=== PATIENT | male | born 1970 | race Caucasian/White ===

== ENCOUNTER 2017-08-16 08:19 | Day surgery (SDC) | payer OTHER, BC ==
[~2017-08-16 08:19] MED LIST: Bupivacaine 0.5% 30 ML SDV ONE; Lactated Ringers 1,000 ML IV SCH; Sodium Chloride 0.9% 10 ML Syringe FLUSH PRN; Sodium Chloride 0.9% 2.5 ML Syringe FLUSH PRN; ceFAZolin 2 GM in Premix Bag 1 BAG IV ONE
[2017-08-16] MEDS ORDERED: Scopolamine 1.5 MG Transdermal Patch TRDERM PRN (08:41)
--- NOTE | 2017-08-16 08:43 | PCM.PREANE ---
Preanesthetic Assessment - Anesthesia/Transfusion/Family Hx Anesthesia History: Prior Anesthesia Without Reaction Family History of Anesthesia Reaction: No Transfusion History: No Prior Transfusion(s) - Review of Systems General: No Symptoms Pulmonary: No Symptoms Cardiovascular: No Symptoms Gastrointestinal: No Symptoms Neurological: No Symptoms Other: Reports: None - Physical Assessment NPO Status Date: 08/15/17 O2 Sat by Pulse Oximetry: 95 Respiratory Rate: 16 Vital Signs: Last Vital Signs Temp 37.0 C 08/16/17 08:36 Pulse 68 08/16/17 08:36 Resp 16 08/16/17 08:36 BP 151/92 H 08/16/17 08:36 Pulse Ox 95 08/16/17 08:36 Height: 1.83 m Weight: 119.748 kg ASA Class: 2 Mental Status: Alert & Oriented x3 Airway Class: Mallampati = 1 Dentition: Reports: Normal Dentition ROM/Head Extension: Full Lungs: Clear to Auscultation, Normal Respiratory Effort Cardiovascular: Regular Rate, Regular Rhythm - Allergies Allergies/Adverse Reactions: Allergies Allergy/AdvReac Type Severity Reaction Status Date / Time avocado Allergy Airway Verified 08/12/17 09:25 Tightness - Anesthesia Plan Pre-Op Medication Ordered: Other (scop) - Acknowledgements Anesthesia Type Planned: General Anesthesia Pt an Appropriate Candidate for the Planned Anesthesia: Yes Alternatives and Risks of Anesthesia Discussed w Pt/Guardian: Yes Pt/Guardian Understands and Agrees with Anesthesia Plan: Yes PreAnesthesia Questionnaire - Past Health History Medical/Surgical History: Denies Medical/Surgical History Musculoskeletal History: Reports: Fracture Other Musculoskeletal History: hx of fx left shoulder, ribs and foot Endocrine/Metabolic History: Reports: Obesity/BMI 30+ - Past Surgical History Head Surgeries/Procedures: Reports: None Neurological Surgical History: Reports: Discectomy, Lumbar Spine Musculoskeletal Surgical History: Reports: ORIF Other Musculoskeletal Surgeries/Procedures:: left shoulder (has hardware) - SUBSTANCE USE Smoking Status *Q: Never Smoker Tobacco Use Within Last Twelve Months: No Days Per Week of Alcohol Use: 0 Recreational Drug Use History: No - HOME MEDS Home Medications: Home Meds . [No Known Home Meds] 08/12/17 [History] - CURRENT (IN HOUSE) MEDS Current Meds: Current Medications Lactated Ringer's (Ringers, Lactated) 1,000 mls @ 125 mls/hr IV ASDIRECTED LULÚ Last Admin: 08/16/17 08:37 Dose: 125 mls/hr Sodium Chloride (Saline Flush) 10 ml FLUSH ASDIRECTED PRN PRN Reason: Keep Vein Open Sodium Chloride (Saline Flush) 2.5 ml FLUSH ASDIRECTED PRN PRN Reason: Keep Vein Open Discontinued Medications Bupivacaine HCl (Marcaine 0.5%) Confirm Administered Dose 30 ml .ROUTE .STK-MED ONE Stop: 08/16/17 07:27 Cefazolin Sodium/Dextrose 2 gm (/ Premix) 50 mls @ 100 mls/hr IV ONETIME ONE Stop: 08/15/17 17:06
[2017-08-16] MEDS ORDERED: Lidocaine 2% 5 ML SDV ONE (08:59)
[2017-08-16] MEDS ORDERED: fentaNYL 100 MCG/2 ML SDV ONE (09:00)
[2017-08-16] MEDS ORDERED: Midazolam 1 MG/ML 2 ML SDV ONE (09:00)
[2017-08-16] MEDS ORDERED: Propofol 200 MG/20 ML SDV ONE ×2 (09:00→10:35)
[2017-08-16] MEDS ORDERED: Rocuronium 10 MG/ML 10 ML Syringe ONE (09:06)
[2017-08-16] MEDS ORDERED: Glycopyrrolate 0.2 MG/ML SDV ONE (09:06)
[2017-08-16] MEDS ORDERED: Neostigmine Methylsulfate 1 MG/ML 5 ML Syringe ONE (09:06)
[2017-08-16] MEDS ORDERED: Ondansetron 4 MG/2 ML SDV ONE (09:06)
[2017-08-16] MEDS ORDERED: Ketorolac 30 MG/ML SDV ONE (09:06)
[2017-08-16] MEDS ORDERED: ceFAZolin 1 GM Vial ONE (09:11)
[2017-08-16] MEDS ORDERED: Sodium Chloride 0.9% 20 ML ONE (09:11)
[2017-08-16] MEDS ORDERED: Albuterol 6.7 GM Inhaler INH ONE (09:40)
[2017-08-16] MEDS ORDERED: Acetaminophen/oxyCODONE 325-5 MG Tab PO PRN (11:57)
--- NOTE | 2017-08-16 11:57 | PCM.OPNOTE ---
- General Post-Op/Procedure Note Date of Surgery/Procedure: 08/16/17 Operative Procedure(s): Laparoscopic cholecystectomy Findings: Enlarged gallbladder with minimal inflammation. Pre Op Diagnosis: symptomatic cholelithiasis Post-Op Diagnosis: same Anesthesia Technique: General ET Tube Primary Surgeon: Clementine Rodriguez EBL in mLs: 10 Condition: Good
[2017-08-16] MEDS ORDERED: HYDROmorphone 2 MG/ML Syringe IVPUSH ONE (12:03)
[2017-08-16] MEDS: fentaNYL 100 MCG/2 ML SDV IVPUSH PRN ×2 (12:20→12:25)
--- NOTE | 2017-08-16 12:48 | PCM.POSTAN ---
POST ANESTHESIA ASSESSMENT - MENTAL STATUS Mental Status: Alert, Oriented - RESPIRATORY Respiratory Status: Respiratory Rate WNL, Airway Patent, O2 Saturation Stable - CARDIOVASCULAR CV Status: Pulse Rate WNL, Blood Pressure Stable - GASTROINTESTINAL GI Status: No Symptoms - POST OP HYDRATION Hydration Status: Adequate & Stable
[2017-08-16 13:49] VITALS: BP 140/92
--- NOTE | 2017-08-16 13:58 | PCM48HPAN ---
Post Anesthesia Note - EVALUATION WITHIN 48HRS OF ANESTHETIC Vital Signs in Normal Range: Yes Patient Participated in Evaluation: Yes Respiratory Function Stable: Yes Airway Patent: Yes Cardiovascular Function Stable: Yes Hydration Status Stable: Yes Pain Control Satisfactory: Yes Nausea and Vomiting Control Satisfactory: Yes Mental Status Recovered: Yes Resp Rate: 16 - COMMENTS/OBSERVATIONS Free Text/Narrative:: Patient states he is feeling better and less sleepy and ready to go home.
--- NOTE | 2017-08-16 14:36 | OR ---
SURGEON: ANDRE GROVE MD DATE OF PROCEDURE: 08/16/2017 PREOPERATIVE DIAGNOSIS: Symptomatic cholelithiasis. POSTOPERATIVE DIAGNOSIS: Symptomatic cholelithiasis. PROCEDURE PERFORMED: Laparoscopic cholecystectomy. ANESTHESIA: General endotracheal anesthesia. ESTIMATED BLOOD LOSS: 10 mL. FLUIDS: See anesthesia record. URINE OUTPUT: See anesthesia record. FINDINGS: Enlarged appearing gallbladder with mild inflammation. COMPLICATIONS: None. INDICATIONS: The patient is a 47-year-old male with symptomatic cholelithiasis. Preoperative labs showed normal LFTs and lipase. His right upper quadrant ultrasound showed a mildly dilated common bile duct. MRCP was performed that showed no evidence of choledocholithiasis. The decision was made to perform a laparoscopic possible open cholecystectomy. I explained both the laparoscopic and open procedure. Should I be unable to perform it laparoscopically, I will convert to open. The patient and I discussed the expected perioperative course as well as risks of the surgery including bleeding, infection, or damage to surrounding structures including damage to surrounding structures. The patient verbalized understanding and wishes to proceed. PROCEDURE IN DETAIL: The patient was brought to the OR and placed on the OR table in supine position. A time-out was completed verifying the patient's name, age, date of , allergies, and procedure to be performed. General endotracheal anesthesia was induced. The left arm was tucked to the patient's side and a Shah catheter placed. The abdomen was prepped and draped in usual standard fashion. I anesthetized the infraumbilical fold with 0.5% Marcaine plain. An incision was made along the infraumbilical fold using an 11 blade. Cautery was used to dissect down to the level of the subcutaneous fat. Retractors were then used to dissect down to the level of the fascia. The fascia was elevated with Mamie's and incised sharply with the Shore scissors. The peritoneum was identified, elevated with tonsils, and incised with the Metzenbaum scissors. A 12 stay sutures were placed on either side of the fascia. A 12 mm Ebony trocar was placed in the abdomen, and the abdomen insufflated to a pressure of 13 mmHg. The patient was then placed in reverse Trendelenburg position and airplaned slightly to the left. A 5 mm 30-degree scope was inserted in the abdomen. I inspected the area underneath my initial incision and there was no damage to surrounding structures. The 5 mm trocars were placed in the following locations under direct visualization, one in the epigastric area, one along the right flank, and two fingerbreadths below the right subcostal margin in the midclavicular line. The top of the gallbladder was grasped with an atraumatic grasper and lifted above the dome of the liver. This exposed the infundibulum. The infundibulum was grasped with an atraumatic grasper and retracted to allow dissection of the preperitoneal fat that was adhered up along the cystic duct and artery. A combination of hook cautery and blunt dissection were used to obtain my critical view. Once I could identify my cystic duct artery and I cleared away one-third of the proximal cystic plate, I doubly clipped and ligated the cystic duct and artery. The gallbladder was then removed from the gallbladder fossa using electrocautery. Upon manipulation, the clip that was on the gallbladder itself came loose and bile was spilled in the abdomen. No stones were spilled in the abdomen. The gallbladder was then placed in an EndoCatch bag and removed through the periumbilical port site. A liter and half of normal saline was used to irrigate the abdomen, given the spillage of bile. Once my operative site was clear, I inspected it, it appeared hemostatic and the clips to be in good position with no evidence of bleeding or bile leakage. The ports were then removed under direct visualization, and the abdomen allowed to desufflate. The infraumbilical incision was irrigated with normal saline. The fascia at the infraumbilical port site was closed using interrupted 0 Vicryl sutures. The subcutaneous fat was closed with running 3-0 Vicryl suture. The skin was closed with running 4-0 Monocryl stitch. The 5 mm port sites were closed with interrupted 4-0 Monocryl sutures. Steri-Strips and sterile dressings were applied. The patient tolerated the procedure well and was taken to PACU in stable condition. SHEKHAR STEVENS /[id number] REHAN
== END 2017-08-16 13:55 | disposition home or self-care (01) ==
LOC: MW.SDS 08:19
PROVIDERS: ATTEND Surgery
DX: K80.10 Calculus of gallbladder with chronic cholecystitis without obstruction (principal); K40.20 Bilateral inguinal hernia, without obstruction or gangrene, not specified as recurrent; E66.9 Obesity, unspecified; Z79.899 Other long term (current) drug therapy; Z90.49 Acquired absence of other specified parts of digestive tract; Z91.018 Allergy to other foods; Z68.30 Body mass index [BMI] 30.0-30.9, adult
CPT/HCPCS: 47562; A9270; J0690; J1885; J2250; J2405; J3010; J7120; 00790; 88304; J2704

== ENCOUNTER 2019-05-22 18:12 | Emergency (ER) | payer OTHER, BC ==
[2019-05-22] MEDS ORDERED: Sodium Chloride 0.9% 2.5 ML Syringe FLUSH PRN (18:29)
[2019-05-22] MEDS ORDERED: Sodium Chloride 0.9% 10 ML Syringe FLUSH PRN (18:29)
--- NOTE | 2019-05-22 18:33 | EDM.PDOC ---
ED HPI GENERAL MEDICAL PROBLEM - General Chief Complaint: Abdominal Pain Stated Complaint: RIGHT SIDE PAIN Time Seen by Provider: 05/22/19 18:14 Source of Information: Reports: Patient History Limitations: Reports: No Limitations - History of Present Illness INITIAL COMMENTS - FREE TEXT/NARRATIVE: HISTORY AND PHYSICAL: History of present illness: Patient is a 49-year-old male who presents to the emergency room today with complaints of right upper quadrant pain with nausea. He states symptoms started approximately 1 hour prior to arrival. He currently is on amoxicillin for an upper respiratory infection, otherwise had felt well this afternoon. Patient denies any fever, chills, headache, change in vision, syncope or near syncope. Denies any chest pain, back pain, shortness of breath or cough. Denies any vomiting, diarrhea, constipation or dysuria. Has not noted any blood in urine or stool. Patient has been eating and drinking appropriately. Review of systems: As per history of present illness and below otherwise all systems reviewed and negative. Past medical history: As per history of present illness and as reviewed below otherwise noncontributory. Surgical history: As per history of present illness and as reviewed below otherwise noncontributory. Social history: See social history for further information Family history: As per history of present illness and as reviewed below otherwise noncontributory. Physical exam: General: Well-developed and well-nourished 49-year-old male. Alert and oriented. Nontoxic appearing and in no acute distress. HEENT: Atraumatic, normocephalic, pupils equal and reactive bilaterally, negative for conjunctival pallor or scleral icterus, mucous membranes moist, TMs normal bilaterally, throat clear, neck supple, nontender, trachea midline. No drooling or trismus noted. No meningeal signs. No hot potato voice noted. Lungs: Clear to auscultation, breath sounds equal bilaterally, chest nontender. Heart: S1S2, regular rate and rhythm without overt murmur Abdomen: Soft, nondistended, LUQ/RUQ tenderness. Negative for masses or hepatosplenomegaly. Negative for costovertebral tenderness. Pelvis: Stable nontender. Skin: Intact, warm, dry. No lesions or rashes noted. Extremities: Atraumatic, moves all extremities per self without difficulty or deficits, negative for cords or calf pain. Neurovascular unremarkable. Neuro: Awake, alert, oriented. Cranial nerves II through XII unremarkable. Cerebellum unremarkable. Motor and sensory unremarkable throughout. Exam nonfocal. Notes: Patient believes he does have a history of pancreatitis stating he had similar symptoms while he was in [place] although did not ever get any lab results or was told what he was diagnosed with. He did recently drink pretty heavily a few nights ago at a holiday constitution party. States otherwise he doesn't typically drink too often, rather socially. Patient states his abdominal pain has improved since being here. We discussed lab results. Admission was offered, he declines. He has been able to keep fluids down. We discussed the importance of close follow up with PCP and signs and symptoms that would prompt him to return to the emergency room. Supportive care measures were reviewed and discussed. Patient voices understanding and is agreeable to plan of care. Denies any further questions or concerns at this time Diagnostics: CBC, CMP, UA, Lipase Therapeutics: IV fluids, Zofran, Morphine Impression: Acute Pancreatitis Plan: 1. [place] diet, advance as tolerated. Make sure you are pushing fluids to prevent dehydration 2. Take the medications as prescribed. 3. Follow-up with your primary care provider as we discussed. 4. If symptoms should not improve or new symptoms develop/worsened please return to the emergency room for admission as we discussed. Definitive disposition and diagnosis as appropriate pending reevaluation and review of above. R upper quadrant Pain Score (Numeric/FACES): 6 - Related Data Allergies Allergy/AdvReac Type Severity Reaction Status Date / Time avocado Allergy Airway Verified 08/12/17 09:25 Tightness Home Meds: Home Meds Fish Oil/[place]-3 Fatty Acids [Fish Oil 1,000 MG] 1 tab PO DAILY 05/16/18 [ History] Amoxicillin 500 mg PO BID 05/22/19 [History] Past Medical History - Past Health History Medical/Surgical History: Denies Medical/Surgical History Gastrointestinal History: Reports: None Musculoskeletal History: Reports: Fracture Other Musculoskeletal History: hx of fx left shoulder, ribs and foot Neurological History: Reports: None Endocrine/Metabolic History: Reports: Obesity/BMI 30+ - Past Surgical History Head Surgeries/Procedures: Reports: None GI Surgical History: Reports: Cholecystectomy Neurological Surgical History: Reports: Lumbar Spine Other Neurological Surgeries/Procedures: hx microdiscectomy Musculoskeletal Surgical History: Reports: Shoulder Surgery ED ROS GENERAL - Review of Systems Review Of Systems: Comprehensive ROS is negative, except as noted in HPI. ED EXAM, GI/ABD - Physical Exam Exam: See Below (See dictation) Course - Vital Signs Last Recorded V/S: Last Vital Signs Temp 96.5 F 05/22/19 18:38 Pulse 76 05/22/19 20:25 Resp 16 05/22/19 20:25 BP 124/73 05/22/19 20:25 Pulse Ox 95 05/22/19 20:25 - Orders/Labs/Meds Orders: Active Orders 24 hr Category Date Time Status Abdomen Pelvis w Cont [CT] Stat Exams 05/22/19 19:37 Taken Sodium Chloride 0.9% [Normal Saline] 1,000 ml Med 05/22/19 20:23 Active IV STAT Sodium Chloride 0.9% [Saline Flush] Med 05/22/19 18:29 Active 10 ml FLUSH ASDIRECTED PRN Sodium Chloride 0.9% [Saline Flush] Med 05/22/19 18:29 Active 2.5 ml FLUSH ASDIRECTED PRN Saline Lock Insert [OM.PC] Stat Oth 05/22/19 18:29 Ordered Medication Orders Sodium Chloride (Normal Saline) 1,000 mls @ 150 mls/hr IV STAT ONE Stop: 05/23/19 03:02 Last Admin: 05/22/19 20:26 Dose: 150 mls/hr Sodium Chloride (Saline Flush) 10 ml FLUSH ASDIRECTED PRN PRN Reason: Keep Vein Open Sodium Chloride (Saline Flush) 2.5 ml FLUSH ASDIRECTED PRN PRN Reason: Keep Vein Open Labs: Laboratory Tests 05/22/19 05/22/19 05/22/19 Range/Units 19:00 19:00 19:30 WBC 10.24 (4.0-11.0) K/uL RBC 5.46 (4.50-5.90) M/uL Hgb 15.9 (13.0-17.0) g/dL Hct 45.9 (38.0-50.0) % MCV 84.1 (80.0-98.0) fL MCH 29.1 (27.0-32.0) pg MCHC 34.6 (31.0-37.0) g/dL RDW Std Deviation 37.9 (28.0-62.0) fl RDW Coeff of Darryl 13 (11.0-15.0) % Plt Count 167 (150-400) K/uL MPV 10.60 (7.40-12.00) fL Neut % (Auto) 74.8 (48.0-80.0) % Lymph % (Auto) 16.6 (16.0-40.0) % [place] % (Auto) 6.1 (0.0-15.0) % Eos % (Auto) 2.4 (0.0-7.0) % Baso % (Auto) 0.1 (0.0-1.5) % Neut # (Auto) 7.7 H (1.4-5.7) K/uL Lymph # (Auto) 1.7 (0.6-2.4) K/uL [place] # (Auto) 0.6 (0.0-0.8) K/uL Eos # (Auto) 0.3 (0.0-0.7) K/uL Baso # (Auto) 0.0 (0.0-0.1) K/uL Nucleated RBC % 0.0 /100WBC Nucleated RBCs # 0 K/uL Sodium 141 (136-148) mmol/L Potassium 3.6 (3.5-5.1) mmol/L Chloride 105 (98-107) mmol/L Carbon Dioxide 27.8 (21.0-32.0) mmol/L BUN 26 H (7.0-18.0) mg/dL Creatinine 1.0 (0.8-1.3) mg/dL Est Cr Clr Drug Dosing 101.61 mL/min Estimated GFR (MDRD) > 60.0 ml/min Glucose 108 H (74-106) mg/dL Calcium 9.2 (8.5-10.1) mg/dL Total Bilirubin 0.4 (0.2-1.0) mg/dL AST 30 (15-37) IU/L ALT 47 (14-63) IU/L Alkaline Phosphatase 94 (46-116) U/L Total Protein 7.0 (6.4-8.2) g/dL Albumin 3.9 (3.4-5.0) g/dL Globulin 3.1 (2.6-4.0) g/dL Albumin/Globulin Ratio 1.3 (0.9-1.6) Lipase 1991 H (73-393) U/L Urine Color YELLOW Urine Appearance CLEAR Urine pH 6.0 (5.0-8.0) Ur Specific [place] >= 1.030 (1.001-1.035) Urine Protein NEGATIVE (NEGATIVE) mg/dL Urine Glucose (UA) NEGATIVE (NEGATIVE) mg/dL Urine Ketones TRACE H (NEGATIVE) mg/dL Urine Occult Blood NEGATIVE (NEGATIVE) Urine Nitrite NEGATIVE (NEGATIVE) Urine Bilirubin NEGATIVE (NEGATIVE) Urine Urobilinogen 0.2 (<2.0) EU/dL Ur Leukocyte Esterase NEGATIVE (NEGATIVE) Meds: Medications Generic Name Dose Route Start Last Admin Trade Name Freq PRN Reason Stop Dose Admin Sodium Chloride 1,000 mls @ 150 mls/hr 05/22/19 20:23 05/22/19 20:26 Normal Saline IV 05/23/19 03:02 150 mls/hr STAT ONE Administration Sodium Chloride 10 ml 05/22/19 18:29 Saline Flush FLUSH ASDIRECTED PRN Keep Vein Open Sodium Chloride 2.5 ml 05/22/19 18:29 Saline Flush FLUSH ASDIRECTED PRN Keep Vein Open Discontinued Medications Generic Name Dose Route Start Last Admin Trade Name Freq PRN Reason Stop Dose Admin Sodium Chloride 1,000 mls @ 999 mls/hr 05/22/19 18:47 05/22/19 19:05 Normal Saline IV 05/22/19 19:47 999 mls/hr STAT ONE Administration Iopamidol 100 ml 05/22/19 21:07 05/22/19 21:07 Isovue Multipack-370 (76%) IVPUSH 05/22/19 21:08 100 ml ONETIME ONE Administration Morphine Sulfate 4 mg 05/22/19 19:38 05/22/19 20:00 Morphine IVPUSH 05/22/19 19:39 4 mg ONETIME ONE Administration Ondansetron HCl 4 mg 05/22/19 18:47 05/22/19 19:05 Zofran IVPUSH 05/22/19 18:48 4 mg ONETIME ONE Administration Departure - Departure Time of Disposition: 22:07 Disposition: Home, Self-Care 01 Clinical Impression: Pancreatitis Qualifiers: Chronicity: acute Pancreatitis type: unspecified pancreatitis type Acute pancreatitis complication: no infection or necrosis Qualified Code(s): K85.90 - Acute pancreatitis without necrosis or infection, unspecified - Discharge Information Instructions: Acute Pancreatitis, [id number] Referrals: Armando Degroot MD [Primary Care Provider] - Forms: ED Department Discharge Additional Instructions: The following information is given to patients seen in the emergency department who are being discharged to home. This information is to outline your options for follow-up care. We provide all patients seen in our emergency department with a follow-up referral. The need for follow-up, as well as the timing and circumstances, are variable depending upon the specifics of your emergency department visit. If you don't have a primary care physician on staff, we will provide you with a referral. We always advise you to contact your personal physician following an emergency department visit to inform them of the circumstance of the visit and for follow-up with them and/or the need for any referrals to a consulting specialist. The emergency department will also refer you to a specialist when appropriate. This referral assures that you have the opportunity for follow-up care with a specialist. All of these measure are taken in an effort to provide you with optimal care, which includes your follow-up. Under all circumstances we always encourage you to contact your private physician who remains a resource for coordinating your care. When calling for follow-up care, please make the office aware that this follow-up is from your recent emergency room visit. If for any reason you are refused follow-up, please contact the [facility] Emergency Department at and asked to speak to the emergency department charge nurse. [facility] [address] [place] [id number] [address] 1. [place] diet, advance as tolerated. Make sure you are pushing fluids to prevent dehydration 2. Take the medications as prescribed. 3. Follow-up with your primary care provider as we discussed. 4. If symptoms should not improve or new symptoms develop/worsened please return to the emergency room for admission as we discussed. Sepsis Event Note - Focused Exam Vital Signs: Vital Signs Temp Pulse Resp BP Pulse Ox 05/22/19 20:25 76 16 124/73 95 05/22/19 18:38 96.5 F 93 16 144/86 H 95 Date Exam was Performed: 05/22/19 Time Exam was Performed: 22:03 - My Orders Last 24 Hours: My Active Orders 05/22/19 18:29 Sodium Chloride 0.9% [Saline Flush] 10 ml FLUSH ASDIRECTED PRN Sodium Chloride 0.9% [Saline Flush] 2.5 ml FLUSH ASDIRECTED PRN Saline Lock Insert [OM.PC] Stat 05/22/19 19:37 Abdomen Pelvis w Cont [CT] Stat 05/22/19 20:23 Sodium Chloride 0.9% [Normal Saline] 1,000 ml IV STAT - Assessment/Plan Last 24 Hours: My Active Orders 05/22/19 18:29 Sodium Chloride 0.9% [Saline Flush] 10 ml FLUSH ASDIRECTED PRN Sodium Chloride 0.9% [Saline Flush] 2.5 ml FLUSH ASDIRECTED PRN Saline Lock Insert [OM.PC] Stat 05/22/19 19:37 Abdomen Pelvis w Cont [CT] Stat 05/22/19 20:23 Sodium Chloride 0.9% [Normal Saline] 1,000 ml IV STAT
[2019-05-22] MEDS ORDERED: Ondansetron 4 MG/2 ML SDV IVPUSH ONE (18:47)
[2019-05-22] MEDS ORDERED: Sodium Chloride 0.9% 1,000 ML IV ONE ×2 (18:47→20:23)
[2019-05-22 19:29] LABS: BLOOD UREA NITROGEN,BUN 26 mg/dL (7.0-18.0); CARBON DIOXIDE,CO2 27.8 mmol/L (21.0-32.0); CHLORIDE,CL 105 mmol/L (98-107); GLUCOSE RANDOM 108 mg/dL (74-106); LIPASE 1991 U/L (73-393); POTASSIUM,K 3.6 mmol/L (3.5-5.1); SODIUM,NA 141 mmol/L (136-148)
[2019-05-22] MEDS ORDERED: Morphine 4 MG/ML Syringe IVPUSH ONE (19:38)
[2019-05-22] MEDS ORDERED: Iopamidol 755 MG/ML 200 ML Multipack Bottle IVPUSH ONE (21:07)
--- NOTE | 2019-05-22 22:05 | CT ---
INDICATION: Upper abdominal pain. Pancreatitis TECHNIQUE: CT abdomen and pelvis acquired with IV contrast. 100 mL of Isovue 370 administered. COMPARISON: 06/25/2016 FINDINGS: Lower chest: Mild compressive changes. Liver: Unremarkable. Spleen: Unremarkable. Pancreas: Unremarkable. Gallbladder and bile ducts: Cholecystectomy. Adrenal glands: Unremarkable. 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 Persistent dilatation of the extrarenal pelves without caliectasis or ureteral dilatation. A 5.0 x 4.1 cm cyst again seen in the left renal moiety. GI tract: Mild thickening of the gastric antral wall, protruding into the adjacent distal gastric lumen, could be related to under distension. No bowel obstruction. A normal appendix. No significant pericolonic changes. Vascular structures: Mild atherosclerotic changes. Lymph nodes: No abnormally enlarged lymph nodes. Miscellaneous: Small free fluid in the posteroinferior pelvis. Mild ill-defined increased hazy attenuation in the central mesenteric fat, nonspecific. No free air. Small fat containing inguinal hernias and a tiny fat containing paraumbilical hernia. Pelvic Organs: Stable prostate. A partially contracted bladder. Bones: Chronic posterior left rib deformities. IMPRESSION: No significant peripancreatic changes. If pancreatitis is suspected, correlate with pancreatic enzymes. Mild ill-defined increased attenuation in the central mesenteric fat is nonspecific and could represent minor sclerosing mesenteritis. Small pelvic free fluid. No evidence of appendicitis, diverticulitis or mechanical bowel obstruction. Mild gastric antral wall thickening, protruding into the distal gastric lumen, could be related to under distention, however correlate clinically for PUD and with follow-up evaluation of this region. 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 Dictated by William Monroe MD @ 05/22/2019 10:04:30 PM Please note that all CT scans at this facility use dose modulation, iterative reconstruction, and/or weight-based dosing when appropriate to reduce radiation dose to as low as reasonably achievable. Dictated by: William Monroe MD @ 05/22/2019 22:04:35 (Electronically Signed)
[2019-05-22 22:30] VITALS: BP 127/80; PULSE 71
== END 2019-05-22 22:31 | disposition home or self-care (01) ==
LOC: MW.ED 18:12
DX: K85.90 Acute pancreatitis without necrosis or infection, unspecified (principal); E66.9 Obesity, unspecified; Z91.018 Allergy to other foods; Z68.32 Body mass index [BMI] 32.0-32.9, adult; Z79.899 Other long term (current) drug therapy
CPT/HCPCS: 36415; 74177; 80053; 81003; 83690; 85025; 96361; 96374; 96375; 99284; J2270; J2405; J7030; Q9967; 99283

== ENCOUNTER 2024-08-03 11:38 | Emergency (ER) | payer BC ==
[2024-08-03] MEDS: Acetaminophen/oxyCODONE 325-10 MG Tab PO ONE (12:37)
[2024-08-03 12:55] VITALS: BP 124/82; PULSE 65
== END 2024-08-03 12:52 | disposition home or self-care (01) ==
LOC: MW.ED 11:38
DX: S49.91XA Unspecified injury of right shoulder and upper arm, initial encounter (principal); Z75.8 Other problems related to medical facilities and other health care; Z91.018 Allergy to other foods; Z79.899 Other long term (current) drug therapy; Z90.49 Acquired absence of other specified parts of digestive tract; X50.0XXA Overexertion from strenuous movement or load, initial encounter; Y93.89 Activity, other specified; Y99.0 Civilian activity done for income or pay
CPT/HCPCS: 73030; 99283; A9270